=== PATIENT | male | born 1995 | race Caucasian/White ===

== ENCOUNTER 2017-03-19 14:15 | Inpatient (IN) ==
--- NOTE | 2017-03-19 15:02 | Emergency Department Note ---
Disposition Clinical Impression: Suicidal ideation Disposition: Admitted As Inpatient Condition: Fair Referrals: NO,PCP [Primary Care Provider] - Forms: ED Satisfaction Letter Time of Disposition: 17:29 Psych HPI - General Chief Complaint: ED Psychiatric Symptoms Stated Complaint: court order 1A Time Seen by Provider: 03/19/17 14:39 Source: patient Nursing Notes Reviewed: Yes Vital Signs Reviewed: Yes - History of Present Illness HPI Narrative: 21-year-old male presents emergency room for psychiatric evaluation. Patient was court ordered by the frankfurter inspector to be evaluated from a psychiatric standpoint for increased anger as well as suicidal attempt over the weekend. Patient denies any history of being homicidal or suicidal. He denies any previous suicidal attempts. The uncle that has accompanied him to the emergency room said that he attempted to hang himself on Sunday with a cord in the garage. The girlfriend and father found him doing so and got him safely removed from this cord in the garage. Patient denies any of this taking place. He was sent [facility] later that day for introducing panic. He had been in [facility] up until this morning when they did a teleconference with the [employer] inspector from the [facility] who ordered him to be evaluated from a psychiatric standpoint in the ER. Patient denies any drug or alcohol abuse. The uncle states that he has been using drugs and has had increased anger issues over the past couple months. No other complaints at this time Pt complaint: suicidal ideation - Related Data Home Medications Medication Instructions Recorded Confirmed Ibuprofen [Motrin] 05/26/15 05/26/15 Previous Rx's Medication Instructions Recorded Cephalexin [Keflex] 500 mg PO QID 10 Days 05/26/15 Ibuprofen [Motrin] 800 mg PO Q8HR PRN #20 tablet 05/26/15 Sulfamethoxazole/Trimeth DS 1 each PO BID 10 Days 05/26/15 [Bactrim DS] Ketoprofen 75 mg PO TID PRN #30 capsule 09/09/15 PredniSONE 10 mg PO TID #15 tablet 09/09/15 Loratadine [Claritin] 10 mg PO DAILY 10 Days 09/16/16 Penicillin VK 500 mg PO TID 7 Days 09/16/16 predniSONE [PredniSONE] 40 mg PO DAILY 5 Days 09/16/16 Allergies Allergy/AdvReac Type Severity Reaction Status Date / Time No Known Allergies Allergy Verified 03/19/17 14:37 Review of Systems: Gen.: No fevers or chills or new weakness Eyes: Denies double vision or any vision changes Ears: Denies any otalgia Pharynx: Denies sore throat CV: Denies chest pain. Denies palpitations Respiratory: Denies any cough or sputum production. No shortness of breath. GI: Denies any nausea, vomiting, diarrhea, constipation. Denies abdominal pain Neuro: Denies any headache. No problems with ambulation. No numbness. Skin: Denies any rashes or abrasions Psych: +depression, hx of suicidal thoughts and attempt Musculoskeletal: Denies any arthralgias or myalgias Past Medical History - Past Medical History Medical history: Reports: no medical history Psychiatric history: Reports: anxiety, depression - Social History Smoking Status: Current every day smoker Smokeless Tobacco Status: No Alcohol use: Reports: none Drug use: Reports: none Physical Exam - General Limitations: no limitations General appearance: alert, in no apparent distress - Head Head exam: atraumatic, normocephalic - Eye Eye exam: Present: normal appearance - ENT ENT exam: normal exam, normal oropharynx - Neck Neck exam: Present: normal inspection - Chest Chest inspection: Present: normal inspection - Respiratory Respiratory exam: Present: normal lung sounds bilaterally. Absent: respiratory distress - Cardiovascular Cardiovascular exam: Present: regular rate, normal rhythm, normal heart sounds - Abdominal Exam Abdominal exam: Present: soft, Non-Tender - Extremities Exam Extremities exam: Present: normal inspection - Expanded Lower Extremity Exam Hip/Pelvis exam: Present: normal inspection - Neurological Exam Neurological exam: Present: alert, oriented X3 - Psychiatric Psychiatric exam: Present: agitated, anxious, other (speech is pressured at times). Absent: homicidal ideation, suicidal ideation - Skin Skin exam: Present: warm, dry, intact Course Vital Signs Temperature 97.9 F 03/19/17 14:30 Pulse Rate 90 03/19/17 14:30 Respiratory Rate 18 03/19/17 14:30 Blood Pressure 127/67 03/19/17 14:30 O2 Sat by Pulse Oximetry 96 03/19/17 14:30 Temperature 97.9 F 03/19/17 14:30 Pulse Rate 90 03/19/17 14:30 Respiratory Rate 18 03/19/17 14:30 Blood Pressure 127/67 03/19/17 14:30 O2 Sat by Pulse Oximetry 96 03/19/17 14:30 Oxygen Delivery Oxygen Delivery Room Air Psych - MDM Narrative Medical decision making narrative: will admit to psych 1A saw pt vss - Lab Data Result diagrams: 03/19/17 15:12 03/19/17 15:12 Lab Results 03/19/17 03/19/17 03/19/17 Range/Units 15:12 15:12 15:12 WBC 7.5 (4.3-11.1) K/mcL RBC 4.94 (4.19-5.50) M/mcL Hgb 14.8 (12.9-16.9) g/dL Hct 43.8 (37.5-50.1) % MCV 88.7 (83.0-100.0) fL MCH 30.0 (28.0-33.3) pg MCHC 33.8 (31.6-35.5) g/dL RDW 13.0 (11.5-14.5) % Plt Count 198 (140-400) K/mcL MPV 10.3 (9.4-12.4) fL Immature Gran % 0.4 (0-4) % Seg Neutrophils % 74.2 % Lymphocytes % 20.1 % Monocytes % 4.9 % Eosinophils % 0.0 % Basophils % 0.4 % Neutrophils # 5.6 (1.6-8.9) K/mcL Lymphocytes # 1.5 (0.6-4.6) K/mcL Monocytes # 0.4 (0.0-1.3) K/mcL Eosinophils # 0.0 (0.0-0.6) K/mcL Basophils # 0.0 (0.0-0.2) K/mcL Sodium 143 (136-145) mEq/L Potassium 3.9 (3.5-4.5) mEq/L Chloride 104 (98-109) mEq/L Carbon Dioxide 27 (19-29) mEq/L BUN 15 (8-26) mg/dL Creatinine 0.85 (0.72-1.25) mg/dL Est GFR ( Amer) > 60 (> 60) Est GFR (Non-Af Amer) > 60 (> 60) BUN/Creatinine Ratio 18 (6-26) Glucose 110 H (70-99) mg/dL Calculated Osmolality 297 (280-300) Calcium 9.7 (8.6-10.8) mg/dL Total Bilirubin 1.0 (0.2-1.2) mg/dL Direct Bilirubin 0.4 (0.0-0.5) mg/dL Indirect Bilirubin 0.6 (0.0-1.2) mg/dL AST 26 (5-34) Units/L ALT 22 (0-55) Units/L Alkaline Phosphatase 99 (38-126) Units/L Serum Total Protein 7.5 (6.0-8.3) g/dL Albumin 4.2 (3.5-5.0) g/dL Globulin 3.3 (2.4-3.5) g/dL Albumin/Globulin Ratio 1.3 (1.1-2.2) TSH 0.586 (0.350-4.840) mcIU/mL Urine Color (Yellow) Urine Clarity (Clear) Urine pH (5.0-8.0) pH Units Ur Specific [place] (1.010-1.025) Urine Protein (Neg-Trace) mg/dL Urine Glucose (UA) (Normal) mg/dL Urine Ketones (Negative) mg/dL Urine Blood (Negative) Urine Nitrite (Negative) Urine Bilirubin (Negative) Urine Urobilinogen (Normal) mg/dL Ur Leukocyte Esterase (Negative) Urine Microscopic RBC (0-3) per hpf Urine Microscopic WBC (0-3) per hpf Ur Squamous Epith Cells (None-Few) per lpf Urine Bacteria (None-Few) per hpf Hyaline Casts (None-Few) per lpf Salicylates < 5.0 L (15-30) mg/dL Urine Opiates Screen (Vyndxv=847) ng/mL Acetaminophen < 1.0 L (10-30) mcg/mL Ur Barbiturates Screen (Zouugh=398) ng/mL Ur Phencyclidine Scrn (Cutoff=25) ng/mL Ur Amphetamines Screen (Wceows=0140) ng/mL U Benzodiazepines Scrn (Asoumx=636) ng/mL Urine Cocaine Screen (Cutoff= 300) ng/mL U Marijuana (THC) Screen (Cutoff = 50) ng/mL Ethyl Alcohol < 10 (0-10) mg/dL 03/19/17 03/19/17 Range/Units 15:40 15:40 WBC (4.3-11.1) K/mcL RBC (4.19-5.50) M/mcL Hgb (12.9-16.9) g/dL Hct (37.5-50.1) % MCV (83.0-100.0) fL MCH (28.0-33.3) pg MCHC (31.6-35.5) g/dL RDW (11.5-14.5) % Plt Count (140-400) K/mcL MPV (9.4-12.4) fL Immature Gran % (0-4) % Seg Neutrophils % % Lymphocytes % % Monocytes % % Eosinophils % % Basophils % % Neutrophils # (1.6-8.9) K/mcL Lymphocytes # (0.6-4.6) K/mcL Monocytes # (0.0-1.3) K/mcL Eosinophils # (0.0-0.6) K/mcL Basophils # (0.0-0.2) K/mcL Sodium (136-145) mEq/L Potassium (3.5-4.5) mEq/L Chloride (98-109) mEq/L Carbon Dioxide (19-29) mEq/L BUN (8-26) mg/dL Creatinine (0.72-1.25) mg/dL Est GFR ( Amer) (> 60) Est GFR (Non-Af Amer) (> 60) BUN/Creatinine Ratio (6-26) Glucose (70-99) mg/dL Calculated Osmolality (280-300) Calcium (8.6-10.8) mg/dL Total Bilirubin (0.2-1.2) mg/dL Direct Bilirubin (0.0-0.5) mg/dL Indirect Bilirubin (0.0-1.2) mg/dL AST (5-34) Units/L ALT (0-55) Units/L Alkaline Phosphatase (38-126) Units/L Serum Total Protein (6.0-8.3) g/dL Albumin (3.5-5.0) g/dL Globulin (2.4-3.5) g/dL Albumin/Globulin Ratio (1.1-2.2) TSH (0.350-4.840) mcIU/mL Urine Color Yellow (Yellow) Urine Clarity Clear (Clear) Urine pH 6.5 (5.0-8.0) pH Units Ur Specific [place] > 1.030 H (1.010-1.025) Urine Protein Trace (Neg-Trace) mg/dL Urine Glucose (UA) Normal (Normal) mg/dL Urine Ketones 40 H (Negative) mg/dL Urine Blood Negative (Negative) Urine Nitrite Negative (Negative) Urine Bilirubin Small H (Negative) Urine Urobilinogen Normal (Normal) mg/dL Ur Leukocyte Esterase Negative (Negative) Urine Microscopic RBC 0-3 (0-3) per hpf Urine Microscopic WBC 0-3 (0-3) per hpf Ur Squamous Epith Cells Few (None-Few) per lpf Urine Bacteria None Seen (None-Few) per hpf Hyaline Casts None Seen (None-Few) per lpf Salicylates (15-30) mg/dL Urine Opiates Screen Negative (Ceihbj=654) ng/mL Acetaminophen (10-30) mcg/mL Ur Barbiturates Screen Negative (Xkyodv=753) ng/mL Ur Phencyclidine Scrn Negative (Cutoff=25) ng/mL Ur Amphetamines Screen Negative (Tsycsq=4505) ng/mL U Benzodiazepines Scrn Positive H (Eqarla=745) ng/mL Urine Cocaine Screen Negative (Cutoff= 300) ng/mL U Marijuana (THC) Screen Positive H (Cutoff = 50) ng/mL Ethyl Alcohol (0-10) mg/dL Psychiatric Medical Clearance - Medical Clearance Checklist Medical History: No Social History Section defined Current Vitals: Last Vital Signs Temp 97.9 F 03/19/17 14:30 Pulse 90 03/19/17 14:30 Resp 18 03/19/17 14:30 BP 127/67 03/19/17 14:30 Pulse Ox 96 03/19/17 14:30 Psychiatric Lab Panel: Drug Levels and Toxicity 03/19/17 03/19/17 15:12 15:40 Urine Opiates Screen Negative Acetaminophen < 1.0 L Ur Barbiturates Screen Negative Ur Phencyclidine Scrn Negative Ur Amphetamines Screen Negative U Benzodiazepines Scrn Positive H Urine Cocaine Screen Negative U Marijuana (THC) Screen Positive H Ethyl Alcohol < 10 Abnormal Labs: Abnormal lab results Glucose 110 mg/dL (70-99) H 03/19/17 15:12 Ur Specific [place] > 1.030 (1.010-1.025) H 03/19/17 15:40 Urine Ketones 40 mg/dL (Negative) H 03/19/17 15:40 Urine Bilirubin Small (Negative) H 03/19/17 15:40 Salicylates < 5.0 mg/dL (15-30) L 03/19/17 15:12 Acetaminophen < 1.0 mcg/mL (10-30) L 03/19/17 15:12 U Benzodiazepines Scrn Positive ng/mL (Ekqmri=836) H 03/19/17 15:40 U Marijuana (THC) Screen Positive ng/mL (Cutoff = 50) H 03/19/17 15:40 Statement of Medical Clearance: I have evaluated the patient, reviewed diagnostic information, and certify that the patient's medical condition is sufficiently stable that transfer to the psychiatric unit does not pose a significant risk of deterioration.
[2017-03-19 15:20] LABS: Basophils % 0.4 %; Hematocrit 43.8 % (37.5-50.1); Hemoglobin 14.8 g/dL (12.9-16.9); Immature Granulocytes % 0.4 % (0-4); Lymphocytes # 1.5 K/mcL (0.6-4.6); Lymphocytes % 20.1 %; Mean Corpuscular HGB Conc 33.8 g/dL (31.6-35.5); Mean Corpuscular Volume 88.7 fL (83.0-100.0); Mean Platelet Volume 10.3 fL (9.4-12.4); Monocytes # 0.4 K/mcL (0.0-1.3); Monocytes % 4.9 %; Neutrophils # 5.6 K/mcL (1.6-8.9); Platelet Count 198 K/mcL (140-400); Red Blood Count 4.94 M/mcL (4.19-5.50); Segmented Neutrophils % 74.2 %
[2017-03-19 15:35] LABS: Acetaminophen < 1.0 mcg/mL (10-30); BUN/Creatinine Ratio 18 (6-26); Blood Urea Nitrogen 15 mg/dL (8-26); Calcium 9.7 mg/dL (8.6-10.8); Carbon Dioxide 27 mEq/L (19-29); Chloride 104 mEq/L (98-109); Glucose 110 mg/dL (70-99); Osmolality,Calculated 297 (280-300); Potassium 3.9 mEq/L (3.5-4.5); Sodium 143 mEq/L (136-145); eGFR For African Americans > 60 (> 60); eGFR For Non-African Americans > 60 (> 60)
[2017-03-19 15:36] LABS: Albumin 4.2 g/dL (3.5-5.0); Albumin/Globulin Ratio 1.3 (1.1-2.2); Bilirubin,Direct 0.4 mg/dL (0.0-0.5); Bilirubin,Indirect 0.6 mg/dL (0.0-1.2); Ethanol < 10 mg/dL (0-10); Globulin 3.3 g/dL (2.4-3.5); Salicylate < 5.0 mg/dL (15-30); Total Protein 7.5 g/dL (6.0-8.3)
[2017-03-19 15:48] LABS: Bilirubin,Urine Small (Negative); Blood,Urine Negative (Negative); Clarity,Urine Clear (Clear); Color,Urine Yellow (Yellow); Glucose,Urine (UA) Normal (Normal); Ketones,Urine 40 mg/dL (Negative); Leukocyte Esterase,Urine Negative (Negative); Nitrite,Urine Negative (Negative); PH,Urine 6.5 pH Units (5.0-8.0); Protein,Urine Trace mg/dL (Neg-Trace); Specific Gravity,Urine > 1.030 (1.010-1.025); Urobilinogen,Urine Normal (Normal)
[2017-03-19 15:50] LABS: Bacteria,Urine None Seen per hpf (None-Few); Hyaline Casts,Urine None Seen per lpf (None-Few); RBC,Urine 0-3 per hpf (0-3); Squamous Epithelial Cell,Urine Few per lpf (None-Few); WBC,Urine 0-3 per hpf (0-3)
[2017-03-19 15:54] LABS: Amphetamine Screen,Urine Negative ng/mL (Cutoff=1000); Barbiturate Screen,Urine Negative ng/mL (Cutoff=200); Benzodiazepines Screen,Urine Positive ng/mL (Cutoff=200); Cannabinoid Screen,Urine Positive ng/mL (Cutoff = 50); Cocaine Screen,Urine Negative ng/mL (Cutoff= 300); Opiate Screen,Urine Negative ng/mL (Cutoff=300); Phencyclidine Screen,Urine Negative ng/mL (Cutoff=25)
[2017-03-19 15:56] LABS: Thyroid Stimulating Hormone 0.586 mcIU/mL (0.350-4.840)
[2017-03-19] MEDS ORDERED: *HR* LORazepam 2 MG/ML VIAL IM ONE (17:33)
[2017-03-19] MEDS ORDERED: Haloperidol Lactate 5 MG/ML VIAL IM ONE (17:33)
[2017-03-19] MEDS ORDERED: Haloperidol Lactate 5 MG/ML VIAL ONE (17:35)
[2017-03-19] MEDS ORDERED: *HR* LORazepam 2 MG/ML VIAL ONE (17:36)
[2017-03-19] MEDS ORDERED: *HR* LORazepam 1 MG TABLET PO PRN (18:52)
[2017-03-19] MEDS ORDERED: hydrOXYzine pamoate 25 MG CAPSULE PO PRN (18:52)
[2017-03-19] MEDS ORDERED: MOM Conc 10 ML UD.LIQ PO PRN (18:52)
[2017-03-19] MEDS ORDERED: Ibuprofen 400 MG TABLET PO PRN (18:52)
[2017-03-19] MEDS ORDERED: *HR* LORazepam 2 MG/ML VIAL IM PRN (18:52)
[2017-03-19] MEDS ORDERED: traZODone 50 MG TABLET PO PRN (18:52)
[2017-03-19] MEDS ORDERED: Haloperidol Lactate 5 MG/ML VIAL IM PRN (18:52)
[2017-03-19] MEDS ORDERED: Mag Hydrox/Al Hydrox/Simeth 30 ML UDC PO PRN (18:52)
[2017-03-20] MEDS: Nicotine 2 MG GUM BC PRN ×3 (08:57→22:30)
--- NOTE | 2017-03-20 11:16 | Psychiatry History & Physical ---
Date of Encounter: 03/20/17 Time of Encounter: 10:30 History of Present Illness Patient Stated Chief Complaint: Suicidal ideation Medicare Admission Attestation: For traditional Medicare patients the provided hospital inpatient services are reasonable and necessary and in the case of services not specified as inpatient -only under 42 CFR 419.22 (n), that they are appropriately provided as inpatient services in accordance 42 CFR 412.3. For Critical Access Hospital the patient may reasonably be expected to be discharged or transferred to a hospital within 96 hours after admission to the Critical [facility]. Admitted From: Emergency Dept History of Present Illness: Mr. Aguilera is a 21 year old male admitted from the emergency department for suicidal ideation. Records indicated that patient is court ordered for psychiatric evaluation however there was no documentation from the Court to that effect . Apparently patient had an argument with his father who called the police and patient was charged with inducing panic. Patient reports that he has arguments with his girlfriend and his father. He was seen by Dr. Bryant in December 2016 with diagnoses of depressive disorder and anxiety disorder, he is prescribed trazodone and antidepressant and apparently has not been compliant with medication or appointments. This is the first psychiatric hospitalization for this patient. She denies any previous suicide attempts. He attempted to hang himself in the garage after his argument with his father, he was found by his father before he hanged himself. UDS was positive for THC and benzodiazepine. Past Med Surg Social Fam HX - Past Medical History Medical history: no medical history - Past Psychiatric History Psychiatric history: Reports: anxiety, depression. Denies: previous psychiatric hospitalization - Past Surgical History Surgical History: other - Social History Smoking Status: Current every day smoker Smokeless Tobacco Status: No Alcohol use: none Drug use: none - Family History Father History Unknown: Yes Adopted: [place]: Jimi Age: 51 Family Member Ethnicity: Non- Living Status: Still Living Hx Family Cardiac Disorders: No Hx Family Respiratory Disorders: No Hx Family Cancer: No Hx Family GI Disorders: No Hx Family Genitourinary Disorders: No Hx Family Endocrine Disorder: No Hx Family Musculoskeletal Disorders: No Hx Family Neuromuscular Disorders: No Hx Family Neurologic Disorders: No Hx Family HEENT Disorders: No Hx Family Autoimmune Disorders: No Hx Family Reproductive Disorders: No Hx Family Psychosocial Disorders: Yes (Depression and anxiety) Hx Family Medical Disorders: No Medications & Allergies No Known Home Drugs 03/19/17 [History] Allergies No Known Allergies Allergy (Verified 03/19/17 14:37) Review of Systems Psychiatric: Reports: depression, anxiety, suicidal ideation Mental Status Exam Patient orientation: Yes Person, Yes Time, Yes Place Level of alertness: Alert Patient appearance: Appropriate, Disheveled, Thin Behavior: calm, cooperative Psychomotor activity: Normal Eye contact: Minimal Contact Mood description: Euthymic/stable, Anxious Affect description: congruent with mood, constricted Speech pattern: Normal rate, Normal rhythm, Normal tone Speech volume: Normal Thought process: Linear, Goal Oriented Thought content: No Suicidal ideation, No Homicidal ideation, No Overt delusions Perceptual disturbances: No Auditory hallucinations, No Visual hallucinations Attention span: Capable of Focused Attention Memory description: Grossly Intact Patient reliability: Reliable Historian Intelligence estimate: Average Judgment: Limited Insight: Partial Results - Vital Signs Vital signs: Temp Pulse Resp BP Pulse Ox 98.3 F 90 16 126/80 96 03/20/17 09:35 03/20/17 09:35 03/20/17 09:35 03/20/17 09:35 03/19/17 14:30 - Labs Labs: Laboratory Last Values WBC 7.5 K/mcL (4.3-11.1) 03/19/17 15:12 RBC 4.94 M/mcL (4.19-5.50) 03/19/17 15:12 Hgb 14.8 g/dL (12.9-16.9) 03/19/17 15:12 Hct 43.8 % (37.5-50.1) 03/19/17 15:12 MCV 88.7 fL (83.0-100.0) 03/19/17 15:12 MCH 30.0 pg (28.0-33.3) 03/19/17 15:12 MCHC 33.8 g/dL (31.6-35.5) 03/19/17 15:12 RDW 13.0 % (11.5-14.5) 03/19/17 15:12 Plt Count 198 K/mcL (140-400) 03/19/17 15:12 MPV 10.3 fL (9.4-12.4) 03/19/17 15:12 Immature Gran % 0.4 % (0-4) 03/19/17 15:12 Seg Neutrophils % 74.2 % 03/19/17 15:12 Lymphocytes % 20.1 % 03/19/17 15:12 Monocytes % 4.9 % 03/19/17 15:12 Eosinophils % 0.0 % 03/19/17 15:12 Basophils % 0.4 % 03/19/17 15:12 Neutrophils # 5.6 K/mcL (1.6-8.9) 03/19/17 15:12 Lymphocytes # 1.5 K/mcL (0.6-4.6) 03/19/17 15:12 Monocytes # 0.4 K/mcL (0.0-1.3) 03/19/17 15:12 Eosinophils # 0.0 K/mcL (0.0-0.6) 03/19/17 15:12 Basophils # 0.0 K/mcL (0.0-0.2) 03/19/17 15:12 Sodium 143 mEq/L (136-145) 03/19/17 15:12 Potassium 3.9 mEq/L (3.5-4.5) 03/19/17 15:12 Chloride 104 mEq/L (98-109) 03/19/17 15:12 Carbon Dioxide 27 mEq/L (19-29) 03/19/17 15:12 BUN 15 mg/dL (8-26) 03/19/17 15:12 Creatinine 0.85 mg/dL (0.72-1.25) 03/19/17 15:12 Est GFR ( Amer) > 60 (> 60) 03/19/17 15:12 Est GFR (Non-Af Amer) > 60 (> 60) 03/19/17 15:12 BUN/Creatinine Ratio 18 (6-26) 03/19/17 15:12 Glucose 110 mg/dL (70-99) H 03/19/17 15:12 Calculated Osmolality 297 (280-300) 03/19/17 15:12 Calcium 9.7 mg/dL (8.6-10.8) 03/19/17 15:12 Total Bilirubin 1.0 mg/dL (0.2-1.2) 03/19/17 15:12 Direct Bilirubin 0.4 mg/dL (0.0-0.5) 03/19/17 15:12 Indirect Bilirubin 0.6 mg/dL (0.0-1.2) 03/19/17 15:12 AST 26 Units/L (5-34) 03/19/17 15:12 ALT 22 Units/L (0-55) 03/19/17 15:12 Alkaline Phosphatase 99 Units/L (38-126) 03/19/17 15:12 Serum Total Protein 7.5 g/dL (6.0-8.3) 03/19/17 15:12 Albumin 4.2 g/dL (3.5-5.0) 03/19/17 15:12 Globulin 3.3 g/dL (2.4-3.5) 03/19/17 15:12 Albumin/Globulin Ratio 1.3 (1.1-2.2) 03/19/17 15:12 TSH 0.586 mcIU/mL (0.350-4.840) 03/19/17 15:12 Urine Color Yellow (Yellow) 03/19/17 15:40 Urine Clarity Clear (Clear) 03/19/17 15:40 Urine pH 6.5 pH Units (5.0-8.0) 03/19/17 15:40 Ur Specific [place] > 1.030 (1.010-1.025) H 03/19/17 15:40 Urine Protein Trace mg/dL (Neg-Trace) 03/19/17 15:40 Urine Glucose (UA) Normal mg/dL (Normal) 03/19/17 15:40 Urine Ketones 40 mg/dL (Negative) H 03/19/17 15:40 Urine Blood Negative (Negative) 03/19/17 15:40 Urine Nitrite Negative (Negative) 03/19/17 15:40 Urine Bilirubin Small (Negative) H 03/19/17 15:40 Urine Urobilinogen Normal mg/dL (Normal) 03/19/17 15:40 Ur Leukocyte Esterase Negative (Negative) 03/19/17 15:40 Urine Microscopic RBC 0-3 per hpf (0-3) 03/19/17 15:40 Urine Microscopic WBC 0-3 per hpf (0-3) 03/19/17 15:40 Ur Squamous Epith Cells Few per lpf (None-Few) 03/19/17 15:40 Urine Bacteria None Seen per hpf (None-Few) 03/19/17 15:40 Hyaline Casts None Seen per lpf (None-Few) 06/26/17 15:40 Salicylates < 5.0 mg/dL (15-30) L 03/19/17 15:12 Urine Opiates Screen Negative ng/mL (Mmchzo=276) 03/19/17 15:40 Acetaminophen < 1.0 mcg/mL (10-30) L 03/19/17 15:12 Ur Barbiturates Screen Negative ng/mL (Nqykyp=588) 03/19/17 15:40 Ur Phencyclidine Scrn Negative ng/mL (Cutoff=25) 03/19/17 15:40 Ur Amphetamines Screen Negative ng/mL (Xxsajc=4519) 03/19/17 15:40 U Benzodiazepines Scrn Positive ng/mL (Lufkkq=203) H 03/19/17 15:40 Urine Cocaine Screen Negative ng/mL (Cutoff= 300) 03/19/17 15:40 U Marijuana (THC) Screen Positive ng/mL (Cutoff = 50) H 03/19/17 15:40 Ethyl Alcohol < 10 mg/dL (0-10) 03/19/17 15:12 Assessment and Plan (1) Major depressive disorder, recurrent episode, unspecified Current visit: Yes Status: Acute Plan: Admit inpatient for safety and stabilization, Close observation, Suicide Precautions per unit protocol, Encourage participation in unit milieu, Group Therapy, Monitor sleep, Monitor appetite Additional Plan: 1. We will verify the patient medication and restart them 2. Staff will contact" to find out if patient was court ordered for psychiatric evaluation. No documentation available at this time Risks, benefits, side effects, alternatives discussed w/pt: Yes Patient agreeable to treatment: Yes Qualifiers: Major depression episode severity: severe Psychotic features: without psychotic features Qualified Code(s): F33.2 - Major depressive disorder, recurrent severe without psychotic features
[2017-03-21 09:51] VITALS: BP 124/78
[2017-03-21] MEDS ORDERED: Nicotine 14 MG PATCH.TD24 TD SCH (10:00)
--- NOTE | 2017-03-21 14:07 | Discharge Summary ---
Date of Encounter: 03/21/17 Time of Encounter: 14:03 Diagnosis - Discharge Diagnosis (1) Major depressive disorder, recurrent episode, unspecified Status: Acute Qualifiers: Major depression episode severity: severe Psychotic features: without psychotic features Qualified Code(s): F33.2 - Major depressive disorder, recurrent severe without psychotic features (2) Tetrahydrocannabinol (THC) use disorder, mild, abuse Status: Acute Medications - Discharge Medications Prescriptions: Escitalopram [Lexapro] 20 mg PO DAILY #30 tablet Escitalopram [Lexapro] 20 mg PO DAILY #30 tablet 03/21/17 [Rx] traZODone [TraZODone] 50 mg PO HS PRN #0 tablet 03/21/17 [Rx] Allergies haloperidol [From Haldol] Adverse Reaction (Verified 03/20/17 16:06) Cramping of the Muscles Provider Date of admission: 03/19/17 17:38 Primary care physician: PCP LESLEY Discharging clinician: Tj Kerr Assessment and Plan - Patient/Caregiver Discharge Instructions Activity: resume usual activities as tolerated Diet: regular diet - Follow up Plan Follow up with: LESLEY,PCP [Primary Care Provider] - Functional capacity at discharge: independent ambulation Overall status at discharge: Stable Disposition: Home, Self-Care Hospital Course Hospital course: Mr. Aguilera is a 21 year old male admitted for suicidal ideation. For details of admission please see H&P On the units patient was started on his Lexapro and trazodone. He developed extrapyramidal symptoms from Haldol injection given in the emergency prior to admission. This resolved by Cogentin and Benadryl and on examination he did not have any evidence of stiffness or extrapyramidal symptoms. He was advised to lists Haldol as one of his allergy medication and the staff also was advised to advance Haldol to his allergy list. Patient participated in groups, he denies suicidal ideation and planning to follow up with Dr. brown. His discharge plans were completed by social work case manager. He was advised not to use THC or any other drugs than prescribed. - Time Spent with Patient Total time spent providing and/or coordinating discharge services: Greater than 30 minutes Quality - Multiple Antipsychotics Patient discharged on 2 or more antipsychotic medications: No Procedures - Procedures Procedures: Medication Management, Crisis Stabilization, Supportive Therapy, Group Therapy, Psychoeducational Therapy Mental Status Exam - Mental Status Exam Patient orientation: Yes Person, Yes Time, Yes Place Level of alertness: Alert Patient appearance: Appropriate, Well Groomed Behavior: calm, cooperative Psychomotor activity: Normal Eye contact: Maintains Eye Contact Mood description: Euthymic/stable Affect description: congruent with mood, full range Speech pattern: Normal rate, Normal rhythm, Normal tone Speech Volume: Normal Thought process: Linear, Goal Oriented Thought Content: No Suicidal ideation, No Homicidal ideation, No Overt delusions Perceptual Disturbances: No Auditory hallucinations, No Visual hallucinations Judgment: Limited Insight: Partial
== END 2017-03-21 14:20 | disposition home or self-care (01) | DRG 885 ==
LOC: EMEROO 14:15 → 1ANU 17:38
PROVIDERS: ADMIT Psychiatry & Neurology Psychiatry; ATTEND Psychiatry & Neurology Psychiatry